=== PATIENT | male | born 1990 | race Caucasian/White ===

== ENCOUNTER 2022-02-03 07:24 | Emergency (ER) | payer OTHER ==
[2022-02-03] MEDS ORDERED: TETANUS, DIPHTHERIA TOX,ADULT (TDVAX) 0.5 ML VIAL IM ONE (07:49)
[2022-02-03] MEDS ORDERED: Boostrix 0.5 ML (Tdap) VIAL (>/=7 yrs of age) ONE (07:51)
[2022-02-03] MEDS ORDERED: Ondansetron PF 4 MG/2 ML Vial ONE (07:54)
[2022-02-03] MEDS ORDERED: Morphine 4 MG/ML VIAL ONE (07:54)
[2022-02-03] MEDS ORDERED: CEFAZOLIN 1 GM VIAL ONE ×2 (07:55→14:34)
[2022-02-03] MEDS ORDERED: Sodium Chloride 0.9% 100 ML ONE ×2 (07:56→14:35)
[2022-02-03] MEDS ORDERED: Lidocaine 1% (PF) 30 ML VIAL ONE (08:06)
[2022-02-03 09:43] LABS: SARS-CoV-2 NAA Rapid Test Not Detected (NotDetected)
[2022-02-03] MEDS ORDERED: Morphine 2 MG/ML VIAL ONE (15:44)
== END 2022-02-03 15:54 | disposition short-term general hospital (02) ==
LOC: NAV ERS 07:24
DX: S68.114A Complete traumatic metacarpophalangeal amputation of right ring finger, initial encounter (principal); F17.210 Nicotine dependence, cigarettes, uncomplicated; W27.8XXA Contact with other nonpowered hand tool, initial encounter; Z23 Encounter for immunization; Z20.822 Contact with and (suspected) exposure to COVID-19
CPT/HCPCS: 90471; 90714; 90715; 96365; 96366; 96375; 96376; G0390; J0690; J2001; J2270; J2405; J3490; U0002